=== PATIENT | male | born 1990 | race Caucasian/White ===

== ENCOUNTER 2021-03-06 11:00 | Emergency (ER) | payer MEDICAID ==
[~2021-03-06] VITALS: Ht 175.3 cm; Wt 68.3 kg
[2021-03-06 12:22] LABS: BASOPHILS % (AUTO) 1 % (0-1); EOSINOPHILS % (AUTO) 1 % (1-7); LYMPHOCYTES % (AUTO) 19 % (22-44); MEAN CORPUSCULAR HEMOGLOBIN 32.6 pg (27.5-34.5); MEAN CORPUSCULAR HGB CONC 34.3 g/dL (33.2-36.2); MEAN PLATELET VOLUME 7.6 fL (7.4-10.4); MONOCYTES % (AUTO) 7 % (2-9); NEUTROPHILS % (AUTO) 73 % (42-75); PLATELET COUNT 301 x10^3/uL (130-400); RED BLOOD COUNT 4.45 x10^6/uL (4.38-5.82); RED CELL DISTRIBUTION WIDTH 15.4 % (9.4-14.8)
[2021-03-06 12:32] LABS: ALBUMIN 4.2 g/dL (3.4-5.0); CHLORIDE 107 mmol/L (98-107)
[2021-03-06 12:37] LABS: ALANINE AMINOTRANSFERASE 36 U/L (12-78); ALKALINE PHOSPHATASE 70 U/L (45-117); ANION GAP 8 mmol/L (5-15); BILIRUBIN,TOTAL 0.3 mg/dL (0.2-1.0); CALCIUM 9.2 mg/dL (8.5-10.1); CREATININE 0.68 mg/dL (0.7-1.3)
[2021-03-06 12:39] LABS: SALICYLATE LEVEL < 1.7 mg/dL (2.8-20.0)
--- NOTE | 2021-03-06 13:04 | NUR ---
PT BIB STAFF FROM [facility] [employer] [facility]. PT RPTS SITTING IN [place] AND FEELING "LIKE I WAS GOING TO HAVE A SEIZURE" PT [facility] DA[facility] FOR DETOX AND THEN CAME TO [place] [facility]. STATES HE HAS HAD NO ALCOHOL OR DRUGS FOR 1 WEEK. PT WITH TREMMORS NOTED T/O. VSS ALTHOUGH BP IS ELEVATED AT 167/109. PT INFORMED OF NEED TO PROVIDE URINE SAMPLE AND URINAL AT BEDSIDE. WATER ALSO PROVIDED. CALL LIGHT W/I REACH.
--- NOTE | 2021-03-06 13:33 | NUR ---
DR DAMON AT BEDSIDE. PT ASSESSMENT, POC DISCUSSED AND QUESTIONS ANSWERED.
[2021-03-06 13:34] VITALS: BP 160/103
[2021-03-06] MEDS ORDERED: POTASSIUM CHLORIDE 20 MEQ TAB.ER.PRT ONE (13:39)
[2021-03-06] MEDS ORDERED: POTASSIUM CHLORIDE 20 MEQ TAB.ER.PRT PO ONE (14:00)
== END 2021-03-06 14:38 | disposition home or self-care (01) ==
LOC: ED 13:20
DX: F41.1 Generalized anxiety disorder (principal); R55 Syncope and collapse; R42 Dizziness and giddiness; R00.0 Tachycardia, unspecified
CPT/HCPCS: 36415; 80053; 80320; 80329; 83735; 85025; 93005; 99284; G0480

== ENCOUNTER 2021-03-08 08:49 | Emergency (ER) | payer MEDICAID ==
[~2021-03-08] VITALS: Ht 175.3 cm; Wt 31.0 kg
--- NOTE | 2021-03-08 10:21 | NUR ---
Connected to all monitors. Seizure precautions in place. Attempted IV access 3 times. BING [place] to try for IV access.
--- NOTE | 2021-03-08 11:08 | NUR ---
MD Crow to bedside for eval.
[2021-03-08 12:27] VITALS: BP 127/81
== END 2021-03-08 12:42 | disposition home or self-care (01) ==
LOC: ED 09:40
DX: R55 Syncope and collapse (principal); R41.0 Disorientation, unspecified; F41.9 Anxiety disorder, unspecified; R00.0 Tachycardia, unspecified; F17.200 Nicotine dependence, unspecified, uncomplicated
CPT/HCPCS: 70450; 93005; 99284